=== PATIENT | female | born 1955 | race Hispanic/Latino ===

== ENCOUNTER 2019-06-14 11:44 | Emergency (ER) | payer MEDICARE, OTHER ==
[2019-06-14] MEDS ORDERED: LIP THERAPY VASELINE TP PRN (12:15)
[2019-06-14] MEDS ORDERED: MINERAL OIL/PETROLATUM, WHITE OPHTH OINT 3.5 GM OU PRN (12:15)
--- NOTE | 2019-06-14 12:22 | Emergency Department Report ---
ED Altered Mental Status HPI - General Chief Complaint: Dyspnea/Respdistress Stated Complaint: LARISSA Time Seen by Provider: 06/14/19 12:12 Source: EMS Mode of arrival: Stretcher Limitations: Altered Mental Status - History of Present Illness Initial Comments: Mrs. Jewell is a 63 yo female with hx of MS, CHF who presents with altered mental status and shortness of breath. She was found sitting outside her room at the [facility] living [facility]. She was lethargic breathing 8 breath per minute with oxygen saturation 70% per EMS. EMS discovered two fentanyl patches on her right arm. The shore man removed the patches. After narcan 0.4 mg, she became more awake but altered. She still had trouble breathing. When asked her age, she says "89". Spoke with caregiver Ana [phone]. Ms. Jewell has a history of persistent chronic MS. She requires a walker. Caregiver noticed this morning that she was gagging and vomiting. She seemed "out of it". Miss Jewell intially refused EMS transport. 2 years ago, she required mechanical ventilation at outside hospital Iinitially evaluated at that time at [facility] then transferred to [facility]. She was on mechanical ventilation for 2 weeks. The caregiver said "we almost lost her". She does not have any children. Her father of cancer last year. Her mother currently has severe Alzheimer's dementia. Caregiver does not know who will be the clinical decision maker. Complaint: altered mental status, confusion, decreased responsiveness -: Sudden, This afternoon Severity: severe Consistency of Symptoms: getting worse Context: unknown Treatments Prior to Arrival: other pre-hosp med (narcan) - Related Data Allergies Allergy/AdvReac Type Severity Reaction Status Date / Time Unable to Assess Allergy Unverified 06/14/19 11:46 ED Review of Systems ROS: Stated complaint: LARISSA Other details as noted in HPI Comment: Unobtainable due to pts medical conditions (altered mental status severe WOB) ED Past Medical Hx - Past Medical History Previous Medical History?: Yes Hx Congestive Heart Failure: Yes Additional medical history: Kyphosis, MS - Surgical History Past Surgical History?: No Additional Surgical History: Unknown - Social History Smoking Status: Unknown if ever smoked Substance Use Type: None ED Physical Exam - General Limitations: Altered Mental Status General appearance: lethargic, other (toxic, severe abdominal retractions, appearing to hiccup or forcing air in, accessory muscle use, lethargic, drooling, vomit at the chin) - Head Head exam: Present: atraumatic, normocephalic - Eye Eye exam: Present: PERRL - ENT ENT exam: Present: mucous membranes moist - Neck Neck exam: Present: normal inspection - Respiratory Respiratory exam: Present: respiratory distress, accessory muscle use, decreased breath sounds, prolonged expiratory - Cardiovascular Cardiovascular Exam: Present: tachycardia, normal heart sounds. Absent: systolic murmur, diastolic murmur - GI/Abdominal GI/Abdominal exam: Present: soft. Absent: distended, tenderness, guarding, rebound - Extremities Exam Extremities exam: Present: other (right hand deformed) - Neurological Exam Neurological exam: Present: altered, other (name "Alexia") - Psychiatric Psychiatric exam: Present: other (lethargic) - Skin Skin exam: Present: pallor, other (cool) ED Course Vital Signs 06/14/19 06/14/19 06/14/19 11:51 12:30 12:35 Temperature 100.1 F H Pulse Rate 144 H 68 Respiratory 38 H Rate O2 Sat by Pulse 91 Oximetry - Central Line Placement Right Femoral Consent Obtained: emergent situation Time Out Performed: Yes MD Prep: mask, gown, gloves, other (drape) Central Line Prep: Chlorhexidine scrub, sterile drapes applied Ultrasound Used for Placement: Yes Central Line Lumen Inserted: triple Bloods Obtained for Lab: No Central Line Position: good blood return, all ports aspirated, flus, sutured in place with nyl Dressing Applied: Tegaderm Patient Tolerated Procedure: well Complications: none - Intubation Time Out Performed: Yes Sedative: Etomidate Mg Given: 20 Paralytic: Rocuronium Mg Given: 70 Laryngoscope: Gloria Size: 3 Assist Device Used: fiberoptic device ET Tube Size: 7 Tube Secured Depth (cm): 24 Tube Secured Location: lips Tube Placement Confirmation: visualized tube passing t Patient Tolerated Procedure: other (esophageal intubation on initial attempt) Intubation Complications: difficult intubation, other (reflux of GI contents) Additional Comments: Difficult to open mouth despite paralysis. Able to see artynoids. Difficult to pass 7.5 ETT. Esophageal intubation evident without color change on CO2 detector and return of GI contents. With continuous expression of GI contents, required constant NG suction, unable to pass Bougie tube introduction. Able to ventilate patient between intubation attempts. Finally able to pass tube with Glidoscope guidance and stylet / ETT. Patient was given high flow oxygen through nasal cannula during entire procedure - Lab Data Result diagrams: 06/14/19 13:34 06/14/19 13:34 Lab Results 06/14/19 06/14/19 06/14/19 Range/Units 13:34 13:34 13:34 WBC 5.1 (4.5-11.0) K/mm3 RBC 4.51 (3.65-5.03) M/mm3 Hgb 14.3 (10.1-14.3) gm/dl Hct 43.8 H (30.3-42.9) % MCV 97 (79-97) fl MCH 32 (28-32) pg MCHC 33 (30-34) % RDW 14.7 (13.2-15.2) % Plt Count 322 (140-440) K/mm3 Lymph % (Auto) 45.2 H (13.4-35.0) % [place] % (Auto) 3.6 (0.0-7.3) % Eos % (Auto) 0.2 (0.0-4.3) % Baso % (Auto) 1.1 (0.0-1.8) % Lymph # 2.3 (1.2-5.4) K/mm3 [place] # 0.2 (0.0-0.8) K/mm3 Eos # 0.0 (0.0-0.4) K/mm3 Baso # 0.1 (0.0-0.1) K/mm3 Seg Neutrophils % 49.9 (40.0-70.0) % Seg Neutrophils # 2.5 (1.8-7.7) K/mm3 PT 18.2 H (12.2-14.9) Sec. INR 1.53 H (0.87-1.13) D-Dimer 4488.98 H (0-234) ng/mlDDU Sodium 136 L (137-145) mmol/L Potassium 4.0 (3.6-5.0) mmol/L Chloride 99.7 (98-107) mmol/L Carbon Dioxide 13 L (22-30) mmol/L Anion Gap 27 mmol/L BUN 14 (7-17) mg/dL Creatinine 1.2 (0.7-1.2) mg/dL Estimated GFR 46 ml/min BUN/Creatinine Ratio 12 % Glucose 65 (65-100) mg/dL Calcium 9.6 (8.4-10.2) mg/dL Total Bilirubin 0.70 (0.1-1.2) mg/dL AST 27 (5-40) units/L ALT 7 (7-56) units/L Alkaline Phosphatase 71 (35-129) units/L Ammonia (25-60) umol/L Troponin T 0.011 (0.00-0.029) ng/mL Total Protein 6.8 (6.3-8.2) g/dL Albumin 3.0 L (3.9-5) g/dL Albumin/Globulin Ratio 0.8 % TSH (0.270-4.200) mlU/mL Salicylates (2.8-20.0) mg/dL Acetaminophen (10.0-30.0) ug/mL Plasma/Serum Alcohol (0-0.07) % 06/14/19 06/14/19 06/14/19 Range/Units 13:34 13:34 13:34 WBC (4.5-11.0) K/mm3 RBC (3.65-5.03) M/mm3 Hgb (10.1-14.3) gm/dl Hct (30.3-42.9) % MCV (79-97) fl MCH (28-32) pg MCHC (30-34) % RDW (13.2-15.2) % Plt Count (140-440) K/mm3 Lymph % (Auto) (13.4-35.0) % [place] % (Auto) (0.0-7.3) % Eos % (Auto) (0.0-4.3) % Baso % (Auto) (0.0-1.8) % Lymph # (1.2-5.4) K/mm3 [place] # (0.0-0.8) K/mm3 Eos # (0.0-0.4) K/mm3 Baso # (0.0-0.1) K/mm3 Seg Neutrophils % (40.0-70.0) % Seg Neutrophils # (1.8-7.7) K/mm3 PT (12.2-14.9) Sec. INR (0.87-1.13) D-Dimer (0-234) ng/mlDDU Sodium (137-145) mmol/L Potassium (3.6-5.0) mmol/L Chloride (98-107) mmol/L Carbon Dioxide (22-30) mmol/L Anion Gap mmol/L BUN (7-17) mg/dL Creatinine (0.7-1.2) mg/dL Estimated GFR ml/min BUN/Creatinine Ratio % Glucose (65-100) mg/dL Calcium (8.4-10.2) mg/dL Total Bilirubin (0.1-1.2) mg/dL AST (5-40) units/L ALT (7-56) units/L Alkaline Phosphatase (35-129) units/L Ammonia 14.0 L (25-60) umol/L Troponin T (0.00-0.029) ng/mL Total Protein (6.3-8.2) g/dL Albumin (3.9-5) g/dL Albumin/Globulin Ratio % TSH 5.880 H (0.270-4.200) mlU/mL Salicylates < 0.3 L (2.8-20.0) mg/dL Acetaminophen (10.0-30.0) ug/mL Plasma/Serum Alcohol (0-0.07) % 06/14/19 06/14/19 Range/Units 13:34 13:34 WBC (4.5-11.0) K/mm3 RBC (3.65-5.03) M/mm3 Hgb (10.1-14.3) gm/dl Hct (30.3-42.9) % MCV (79-97) fl MCH (28-32) pg MCHC (30-34) % RDW (13.2-15.2) % Plt Count (140-440) K/mm3 Lymph % (Auto) (13.4-35.0) % [place] % (Auto) (0.0-7.3) % Eos % (Auto) (0.0-4.3) % Baso % (Auto) (0.0-1.8) % Lymph # (1.2-5.4) K/mm3 [place] # (0.0-0.8) K/mm3 Eos # (0.0-0.4) K/mm3 Baso # (0.0-0.1) K/mm3 Seg Neutrophils % (40.0-70.0) % Seg Neutrophils # (1.8-7.7) K/mm3 PT (12.2-14.9) Sec. INR (0.87-1.13) D-Dimer (0-234) ng/mlDDU Sodium (137-145) mmol/L Potassium (3.6-5.0) mmol/L Chloride (98-107) mmol/L Carbon Dioxide (22-30) mmol/L Anion Gap mmol/L BUN (7-17) mg/dL Creatinine (0.7-1.2) mg/dL Estimated GFR ml/min BUN/Creatinine Ratio % Glucose (65-100) mg/dL Calcium (8.4-10.2) mg/dL Total Bilirubin (0.1-1.2) mg/dL AST (5-40) units/L ALT (7-56) units/L Alkaline Phosphatase (35-129) units/L Ammonia (25-60) umol/L Troponin T (0.00-0.029) ng/mL Total Protein (6.3-8.2) g/dL Albumin (3.9-5) g/dL Albumin/Globulin Ratio % TSH (0.270-4.200) mlU/mL Salicylates (2.8-20.0) mg/dL Acetaminophen < 5.0 L (10.0-30.0) ug/mL Plasma/Serum Alcohol < 0.01 (0-0.07) % 06/14/19 12:24 Sinus Tachycardia rate [address] elevation nonspecific T wave pattern 06/14/19 12:28 - Radiology Data Radiology results: report reviewed AP portable chest x-ray: Small lung volumes with bibasilar atelectasis - Medical Decision Making Mrs. Jewell presents with altered mental status and respiratory failure. Low ox ygen saturation requiring nonrebreather. She was lethargic with deeply breathing. With obvious drooling and suspected aspiration with vomitus at mouth, intubation was indicated. She has severe tachycardia. Difficult intubation with initial esophageal intubation and reflux and GI contents. Even tually intubated with glidoscope. With initial lethargy and hx of fentanyl exposure (two patches on right arm) suspect opioid drug toxicity polypharmacy overdose. After narcan, severe work of breathing, suspected aspiration vs exacerbation of CHF vs respiratory dysfunction due to progression of MS. Admitted to ICU on mechanical ventilation. I spoke with Dr. Lantigua at [place] prior to admit One hour after intubation cardiac arrest ensued bradycardia then asystole. ROSC achieved after 3-5 minutes of ACLS. 1.5 hours later, PEA arrest recurred. ACLS unsuccessful. Time of 15:13 Critical Care Time: Yes Critical care attestation.: If time is entered above; I have spent that time in minutes in the direct care of this critically ill patient, excluding procedure time. 40 minutes of critical care time excluding procedures were used in the care of the patient. Patient required multiple assessments and interventions. I reviewed the electronic medical record. I spoke with consultants involved in the care of the patient. ED Disposition Clinical Impression: Acute encephalopathy, Acute respiratory failure, Multiple sclerosis Disposition: DC-20 Is pt being admited?: No Does the pt Need Aspirin: No Condition: Stable Time of Disposition: 15:13
--- NOTE | 2019-06-14 12:59 | XRay Report ---
CHEST 1 VIEW INDICATION / CLINICAL INFORMATION: Chest pain COMPARISON: None available. FINDINGS: SUPPORT DEVICES: The endotracheal tube terminates about 2 cm above the jarrett.. HEART / MEDIASTINUM: No significant abnormality. LUNGS / PLEURA: Low lung volumes bilaterally with mild basilar atelectasis. Signer Name: Marcos Martin MD Signed: 06/14/2019 12:54 PM Workstation Name: [id number]
[2019-06-14] MEDS ORDERED: VANCOMYCIN PHARMACY TO DOSE IV SCH (13:00)
[2019-06-14] MEDS ORDERED: PROPOFOL 1,000 MG/100 ML BOTTLE IV SCH (13:00)
[2019-06-14] MEDS ORDERED: SODIUM CHLORIDE 0.9% 1000 ML 1,000 ML ONE (13:16)
[2019-06-14] MEDS ORDERED: DEXTROSE 50% IN WATER (25GM) 50 ML SYRINGE IV ONE ×2 (13:56→14:02)
[2019-06-14] MEDS ORDERED: ETOMIDATE 20 MG/10 ML INJ IV ONE (13:56)
[2019-06-14] MEDS ORDERED: SODIUM BICARB 8.4% 50 MEQ/50 ML SYRINGE IV ONE (13:56)
[2019-06-14] MEDS ORDERED: ROCURONIUM 50 MG/5 ML INJ IV ONE (13:56)
[2019-06-14] MEDS ORDERED: EPINEPHrine 1:10,000 1 MG/10 ML SYRINGE ONE (13:56)
[2019-06-14] MEDS ORDERED: CALCIUM CHLORIDE 1,000 MG/10 ML SYRINGE IV ONE (13:56)
[2019-06-14] MEDS ORDERED: CEFEPIME/NS 2 GM/100 ML 2 GM/100 ML BAG IV SCH (14:00)
[2019-06-14] MEDS ORDERED: VANCOMYCIN 1,250 MG in SODIUM CHLORIDE 0.9% 250ML 250 ML IV ONE (14:00)
[2019-06-14 14:02] LABS: Basophils # (Auto) 0.1 K/mm3 (0.0-0.1); Basophils % (Auto) 1.1 % (0.0-1.8); Eosinophils % (Auto) 0.2 % (0.0-4.3); Hematocrit 43.8 % (30.3-42.9); Hemoglobin 14.3 gm/dl (10.1-14.3); Lymphocytes # (Auto) 2.3 K/mm3 (1.2-5.4); Lymphocytes % (Auto) 45.2 % (13.4-35.0); Mean Corpuscular HGB Conc 33 % (30-34); Mean Corpuscular Volume 97 fl (79-97); Monocytes # (Auto) 0.2 K/mm3 (0.0-0.8); Monocytes % (Auto) 3.6 % (0.0-7.3); Red Blood Count 4.51 M/mm3 (3.65-5.03); Red Cell Distribution Width 14.7 % (13.2-15.2)
[2019-06-14 14:03] LABS: Platelet Count 322 K/mm3 (140-440)
[2019-06-14 14:13] LABS: INR 1.53 (0.87-1.13)
[2019-06-14 14:27] LABS: Calcium 9.6 mg/dL (8.4-10.2)
[2019-06-14] MEDS ORDERED: NORepinephrine/NS 4 MG-250 ML 4 MG/250 ML BAG IV ONE (14:57)
[2019-06-14 16:54] VITALS: BP 63/42
[2019-06-15] MEDS ORDERED: VANCOMYCIN 750 MG in SODIUM CHLORIDE 0.9% 250ML 250 ML IV SCH (14:00)
== END 2019-06-14 15:30 ==
LOC: ED 11:44 → EDBD 11:44 → ED 15:30
DX: J96.00 Acute respiratory failure, unspecified whether with hypoxia or hypercapnia (principal); G93.40 Encephalopathy, unspecified; G35 Multiple sclerosis
CPT/HCPCS: 31500; 36415; 36556; 71045; 80053; 82140; 84443; 84484; 85025; 85379; 85610; 87040; 93005; 93010; 99291; J0171; J2704; J7030; 80320; 94002; G0480; J0692; J3370; J7050